=== PATIENT | male | born 2000 | race Two or more races ===

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

== ENCOUNTER 2022-04-03 15:49 | Emergency (ER) | payer OTHER ==
[~2022-04-03] VITALS: Ht 172.7 cm; Wt 70.3 kg
[2022-04-03 18:59] VITALS: BP 142/91
[2022-04-03] MEDS ORDERED: TETANUS-DIPTH-ACEL PERTUSSIS 0.5ML SYR Tdap IM ONE (19:00)
== END 2022-04-03 19:54 | disposition home or self-care (01) ==
LOC: ER 15:49
DX: S61.212A Laceration without foreign body of right middle finger without damage to nail, initial encounter (principal); X58.XXXA Exposure to other specified factors, initial encounter; Y93.89 Activity, other specified; Y92.9 Unspecified place or not applicable; Y99.9 Unspecified external cause status
CPT/HCPCS: 12001; 90471; 90715